=== PATIENT | female | born 1985 | race Caucasian/White ===

== ENCOUNTER 2018-11-28 20:51 | Outpatient (CLI) | payer OTHER ==
[~2018-11-28] VITALS: Ht 165.1 cm; Wt 74.5 kg
[2018-11-28 20:53] VITALS: BP 120/67
== END 2018-11-28 21:25 | disposition home or self-care (01) ==
LOC: LDOP 20:51
PROVIDERS: ATTEND Obstetrics & Gynecology
DX: O36.8130 Decreased fetal movements, third trimester, not applicable or unspecified (principal); Z3A.39 39 weeks gestation of pregnancy
CPT/HCPCS: 59025; 99201; G0463